=== PATIENT | male | born 1955 | race Caucasian/White ===

== ENCOUNTER 2018-01-27 13:28 | Inpatient (IN) | payer MEDICAID, OTHER ==
[~2018-01-27] VITALS: Ht 180.3 cm; Wt 130.2 kg
[2018-01-27 14:06] LABS: BASOPHILS % (AUTO) 0 % (0-1); EOSINOPHILS # (AUTO) 0.06 x10^3/uL (0-0.4); EOSINOPHILS % (AUTO) 1 % (1-7); LYMPHOCYTES # (AUTO) 0.99 x10^3/uL (1-3.4); LYMPHOCYTES % (AUTO) 12 % (22-44); MD NO; MEAN CORPUSCULAR HGB CONC 33.2 g/dL (33.2-36.2); MEAN CORPUSCULAR VOLUME 96.3 fL (81-97); MEAN PLATELET VOLUME 9.8 fL (7.4-10.4); MONOCYTES # (AUTO) 0.42 x10^3/uL (0.2-0.8); MONOCYTES % (AUTO) 5 % (2-9); NEUTROPHILS % (AUTO) 82 % (42-75); PLATELET COUNT 155 x10^3/uL (130-400); RED BLOOD COUNT 5.37 x10^6/uL (4.38-5.82); RED CELL DISTRIBUTION WIDTH 14.1 % (9.4-14.8)
[2018-01-27 14:17] LABS: INTERNATIONAL NORMALIZED RATIO 1.1 (0.93-1.1); PROTHROMBIN TIME 11.4 Seconds (9.6-11.5)
[2018-01-27 14:19] LABS: ALANINE AMINOTRANSFERASE 32 U/L (12-78); ALBUMIN 3.6 g/dL (3.4-5.0); ANION GAP 8 mmol/L (5-15); CALCIUM 8.8 mg/dL (8.5-10.1); CHLORIDE 114 mmol/L (98-107); CREATININE 1.75 mg/dL (0.7-1.3)
[2018-01-27 14:24] LABS: ALKALINE PHOSPHATASE 109 U/L (45-117); BILIRUBIN,TOTAL 0.8 mg/dL (0.2-1.0); TOTAL PROTEIN 7.5 g/dL (6.4-8.2); TROPONIN I < 0.015 ng/mL (0.000-0.045)
[2018-01-27] MEDS ORDERED: ALLO300T PO (15:06)
[2018-01-27] MEDS ORDERED: DABI150C PO (15:06)
[2018-01-27] MEDS ORDERED: FURO-92 PO (15:06)
[2018-01-27] MEDS ORDERED: CARV-39 PO (15:06)
[2018-01-27] MEDS ORDERED: LOSA50TA6 PO (15:06)
[2018-01-27] MEDS ORDERED: POLYETHYLENE GLYCOL 17 GM PACKET PO PRN (16:00)
[2018-01-27] MEDS ORDERED: hydrALAzine 20 MG/ML, 1ML IVPush PRN (16:00)
[2018-01-27] MEDS ORDERED: NITROGLYCERIN 0.4 MG BOTTLE (25 TABS) SL PRN (16:00)
[2018-01-27 16:13] VITALS: BP 120/81
[2018-01-27 16:31] VITALS: BP 120/81
[2018-01-27] MEDS: SODIUM CHLORIDE 0.9% 1,000 ML IV SCH (18:26)
[2018-01-27 19:02] VITALS: BP 119/77
[2018-01-27] MEDS: LOSARTAN 50MG TABLET PO SCH (20:49)
[2018-01-27] MEDS: DABIGATRAN 150 MG CAPSULE PO SCH (20:49)
[2018-01-27] MEDS ORDERED: CARVEDILOL 25 MG TABLET PO SCH (21:00)
[2018-01-27] MEDS ORDERED: CARVEDILOL 25 MG TABLET PO ONE (21:00)
[2018-01-27 23:01] LABS: TROPONIN I < 0.015 ng/mL (0.000-0.045)
[2018-01-28 01:11] VITALS: BP 115/75
[2018-01-28] MEDS: SODIUM CHLORIDE 0.9% 1,000 ML IV SCH (05:20)
[2018-01-28 05:22] LABS: ANION GAP 5 mmol/L (5-15); CALCIUM 8.1 mg/dL (8.5-10.1); CHLORIDE 112 mmol/L (98-107); CREATININE 1.35 mg/dL (0.7-1.3)
[2018-01-28 05:28] LABS: TROPONIN I < 0.015 ng/mL (0.000-0.045)
[2018-01-28 07:12] VITALS: BP 115/75
[2018-01-28] MEDS ORDERED: FUROSEMIDE 20 MG TABLET PO SCH (09:00)
[2018-01-28] MEDS ORDERED: ALLOPURINOL 300 MG TABLET PO SCH (09:00)
[2018-01-28] MEDS: LOSARTAN 50MG TABLET PO SCH (09:42)
[2018-01-28] MEDS: DABIGATRAN 150 MG CAPSULE PO SCH (09:42)
[2018-01-28 12:27] VITALS: BP 120/75
[2018-01-28] MEDS ORDERED: CARVEDILOL 25 MG TABLET PO SCH (21:00)
== END 2018-01-28 17:06 | disposition home or self-care (01) | DRG 313 ==
LOC: ED 15:05 → EDIP 15:06 → ED 15:53 → 5SO 15:56
PROVIDERS: ADMIT Family Medicine; ATTEND Family Medicine
DX: R07.89 Other chest pain (principal); N17.9 Acute kidney failure, unspecified; F41.1 Generalized anxiety disorder; E86.0 Dehydration; I11.0 Hypertensive heart disease with heart failure; I20.9 Angina pectoris, unspecified; I50.9 Heart failure, unspecified; K21.9 Gastro-esophageal reflux disease without esophagitis; M10.9 Gout, unspecified; M19.90 Unspecified osteoarthritis, unspecified site; Z60.9 Problem related to social environment, unspecified; Z73.3 Stress, not elsewhere classified; Z77.22 Contact with and (suspected) exposure to environmental tobacco smoke (acute) (chronic); Z79.02 Long term (current) use of antithrombotics/antiplatelets; Z79.01 Long term (current) use of anticoagulants; Z83.3 Family history of diabetes mellitus; Z86.711 Personal history of pulmonary embolism; Z86.718 Personal history of other venous thrombosis and embolism; Z88.0 Allergy status to penicillin
CPT/HCPCS: 36415; 71045; 80048; 80053; 84484; 85025; 85610; 93005; 93017; 93306; 99285; J7030

== ENCOUNTER 2018-05-08 20:27 | Observation (INO) | payer MEDICAID ==
[~2018-05-08] VITALS: Ht 180.3 cm; Wt 134.0 kg
[~2018-05-08 20:27] MED LIST: ALLO300T PO; CARV-39 PO; DABI150C PO; FURO-92 PO; LOSA50TA7 PO
[2018-05-08] MEDS ORDERED: CLINDAMYCIN PMX 600MG/50ML 50 ML IVPB ONE (21:00)
[2018-05-08] MEDS ORDERED: SODIUM CHLORIDE FLUSH 10ML SYR IVF ONE (21:00)
[2018-05-08] MEDS ORDERED: CLINDAMYCIN PMX 600MG/50ML 50 ML ONE (21:03)
[2018-05-08] MEDS ORDERED: IBUPROFEN 800 MG TABLET ONE (21:12)
[2018-05-08 21:18] LABS: BASOPHILS # (AUTO) 0.04 x10^3/uL (0-0.1); BASOPHILS % (AUTO) 1 % (0-1); EOSINOPHILS # (AUTO) 0.24 x10^3/uL (0-0.4); EOSINOPHILS % (AUTO) 3 % (1-7); LYMPHOCYTES % (AUTO) 20 % (22-44); MD NO; MEAN CORPUSCULAR HEMOGLOBIN 31.6 pg (27.5-34.5); MEAN CORPUSCULAR HGB CONC 33.6 g/dL (33.2-36.2); MEAN CORPUSCULAR VOLUME 94.1 fL (81-97); MEAN PLATELET VOLUME 9.5 fL (7.4-10.4); MONOCYTES # (AUTO) 0.69 x10^3/uL (0.2-0.8); MONOCYTES % (AUTO) 9 % (2-9); NEUTROPHILS # (AUTO) 5.02 x10^3/uL (1.8-6.8); NEUTROPHILS % (AUTO) 67 % (42-75); PLATELET COUNT 147 x10^3/uL (130-400); RED BLOOD COUNT 5.02 x10^6/uL (4.38-5.82); RED CELL DISTRIBUTION WIDTH 14.4 % (9.4-14.8)
[2018-05-08 21:28] LABS: ALBUMIN 3.2 g/dL (3.4-5.0); ANION GAP 6 mmol/L (5-15); CALCIUM 8.4 mg/dL (8.5-10.1); CHLORIDE 112 mmol/L (98-107)
[2018-05-08] MEDS ORDERED: IBUPROFEN 800 MG TABLET PO ONE (21:30)
[2018-05-08 21:34] LABS: ALANINE AMINOTRANSFERASE 22 U/L (12-78); ALKALINE PHOSPHATASE 95 U/L (45-117); BILIRUBIN,TOTAL 0.5 mg/dL (0.2-1.0); CREATININE 1.33 mg/dL (0.7-1.3)
[2018-05-08] MEDS ORDERED: SODIUM CHLORIDE FLUSH 10ML SYR IVF PRN (22:00)
[2018-05-08 22:38] VITALS: BP 133/88
[2018-05-08] MEDS ORDERED: hydrALAzine 20 MG/ML, 1ML IVPush PRN (23:00)
[2018-05-08] MEDS ORDERED: ACETAMINOPHEN 325 MG TABLET PO PRN (23:00)
[2018-05-08] MEDS: CARVEDILOL 25 MG TABLET PO SCH (23:20)
[2018-05-08] MEDS: LOSARTAN 50MG TABLET PO SCH (23:21)
[2018-05-08] MEDS: SODIUM CHLORIDE FLUSH 10ML SYR IVF SCH (23:21)
[2018-05-08] MEDS: DABIGATRAN 150 MG CAPSULE PO SCH (23:47)
[2018-05-09 01:54] VITALS: BP 126/82
[2018-05-09 04:41] LABS: BASOPHILS # (AUTO) 0.04 x10^3/uL (0-0.1); BASOPHILS % (AUTO) 1 % (0-1); EOSINOPHILS # (AUTO) 0.18 x10^3/uL (0-0.4); EOSINOPHILS % (AUTO) 3 % (1-7); LYMPHOCYTES # (AUTO) 1.02 x10^3/uL (1-3.4); LYMPHOCYTES % (AUTO) 18 % (22-44); MD NO; MEAN CORPUSCULAR HEMOGLOBIN 31.3 pg (27.5-34.5); MEAN CORPUSCULAR HGB CONC 33.3 g/dL (33.2-36.2); MEAN PLATELET VOLUME 9.3 fL (7.4-10.4); MONOCYTES # (AUTO) 0.66 x10^3/uL (0.2-0.8); MONOCYTES % (AUTO) 12 % (2-9); NEUTROPHILS # (AUTO) 3.84 x10^3/uL (1.8-6.8); NEUTROPHILS % (AUTO) 67 % (42-75); PLATELET COUNT 121 x10^3/uL (130-400); RED BLOOD COUNT 4.71 x10^6/uL (4.38-5.82); RED CELL DISTRIBUTION WIDTH 14.3 % (9.4-14.8)
[2018-05-09] MEDS: CLINDAMYCIN PMX 600MG/50ML 50 ML IV SCH ×3 (04:43→21:07)
[2018-05-09 04:49] LABS: ANION GAP 7 mmol/L (5-15); CHLORIDE 114 mmol/L (98-107); CREATININE 1.21 mg/dL (0.7-1.3)
[2018-05-09 04:56] LABS: HEMOGLOBIN A1C 5.6 % (4.2-6.3)
[2018-05-09 07:15] VITALS: BP 104/63
[2018-05-09] MEDS: CARVEDILOL 25 MG TABLET PO SCH ×2 (09:00→21:04)
[2018-05-09] MEDS: LOSARTAN 50MG TABLET PO SCH ×2 (09:00→21:03)
[2018-05-09] MEDS: SODIUM CHLORIDE FLUSH 10ML SYR IVF SCH ×2 (09:32→21:04)
[2018-05-09] MEDS: DABIGATRAN 150 MG CAPSULE PO SCH ×2 (09:33→21:04)
[2018-05-09] MEDS: FUROSEMIDE 40 MG TABLET PO SCH (09:33)
[2018-05-09 12:12] VITALS: BP 116/75
[2018-05-09 13:37] VITALS: BP 115/72
[2018-05-09 19:59] VITALS: BP 125/76
[2018-05-10 02:00] VITALS: BP 124/77
[2018-05-10 04:23] LABS: BASOPHILS # (AUTO) 0.05 x10^3/uL (0-0.1); BASOPHILS % (AUTO) 1 % (0-1); EOSINOPHILS # (AUTO) 0.25 x10^3/uL (0-0.4); EOSINOPHILS % (AUTO) 4 % (1-7); LYMPHOCYTES # (AUTO) 1.27 x10^3/uL (1-3.4); LYMPHOCYTES % (AUTO) 22 % (22-44); MD NO; MEAN CORPUSCULAR HEMOGLOBIN 31.5 pg (27.5-34.5); MEAN CORPUSCULAR HGB CONC 33.7 g/dL (33.2-36.2); MEAN CORPUSCULAR VOLUME 93.5 fL (81-97); MEAN PLATELET VOLUME 9.3 fL (7.4-10.4); MONOCYTES # (AUTO) 0.57 x10^3/uL (0.2-0.8); MONOCYTES % (AUTO) 10 % (2-9); NEUTROPHILS # (AUTO) 3.76 x10^3/uL (1.8-6.8); NEUTROPHILS % (AUTO) 64 % (42-75); PLATELET COUNT 124 x10^3/uL (130-400); RED BLOOD COUNT 4.75 x10^6/uL (4.38-5.82); RED CELL DISTRIBUTION WIDTH 14.2 % (9.4-14.8)
[2018-05-10 04:31] LABS: ANION GAP 9 mmol/L (5-15); CALCIUM 7.8 mg/dL (8.5-10.1); CHLORIDE 111 mmol/L (98-107); CREATININE 1.21 mg/dL (0.7-1.3)
[2018-05-10] MEDS: CLINDAMYCIN PMX 600MG/50ML 50 ML IV SCH ×2 (05:15→13:56)
[2018-05-10 07:36] VITALS: BP 119/78
[2018-05-10] MEDS: DABIGATRAN 150 MG CAPSULE PO SCH (08:04)
[2018-05-10] MEDS: FUROSEMIDE 40 MG TABLET PO SCH (08:05)
[2018-05-10] MEDS: LOSARTAN 50MG TABLET PO SCH (08:05)
[2018-05-10] MEDS: CARVEDILOL 25 MG TABLET PO SCH (08:05)
[2018-05-10] MEDS: SODIUM CHLORIDE FLUSH 10ML SYR IVF SCH (08:05)
[2018-05-10 14:40] VITALS: BP 122/77
[2018-05-10] MEDS ORDERED: CLIN300C8 PO (14:52)
[2018-05-10] MEDS ORDERED: CLINDAMYCIN 300 MG CAPSULE PO ONE (15:00)
== END 2018-05-10 16:15 | disposition home or self-care (01) ==
LOC: ED 21:40 → INTOOBSV 21:46 → EDIP 21:46 → ED 22:08 → 3NW 22:29
PROVIDERS: ADMIT Family Medicine; ATTEND Family Medicine
DX: L03.115 Cellulitis of right lower limb (principal); I13.0 Hypertensive heart and chronic kidney disease with heart failure and stage 1 through stage 4 chronic kidney disease, or unspecified chronic kidney disease; I50.32 Chronic diastolic (congestive) heart failure; E78.5 Hyperlipidemia, unspecified; N18.3 Chronic kidney disease, stage 3 (moderate); D89.9 Disorder involving the immune mechanism, unspecified; Z86.718 Personal history of other venous thrombosis and embolism; Z23 Encounter for immunization
CPT/HCPCS: 36415; 80048; 80053; 83036; 83605; 85025; 86480; 87040; 90471; 90656; 93971; 96365; 96366; 99285; G0378

== ENCOUNTER 2018-05-13 03:03 | Emergency (ER) | payer MEDICAID ==
[~2018-05-13] VITALS: Ht 180.3 cm; Wt 125.0 kg
[2018-05-13 03:03] VITALS: BP 135/88
[~2018-05-13 03:03] MED LIST changes: +CLIN300C8 PO
[2018-05-13] MEDS ORDERED: HYDROcodone/APAP 5/325 TABLET ONE (03:55)
[2018-05-13 03:56] LABS: BASOPHILS # (AUTO) 0.04 x10^3/uL (0-0.1); BASOPHILS % (AUTO) 1 % (0-1); EOSINOPHILS % (AUTO) 3 % (1-7); LYMPHOCYTES # (AUTO) 1.28 x10^3/uL (1-3.4); LYMPHOCYTES % (AUTO) 19 % (22-44); MD NO; MEAN CORPUSCULAR HEMOGLOBIN 31.2 pg (27.5-34.5); MEAN CORPUSCULAR HGB CONC 33.2 g/dL (33.2-36.2); MEAN CORPUSCULAR VOLUME 93.8 fL (81-97); MEAN PLATELET VOLUME 9.3 fL (7.4-10.4); MONOCYTES # (AUTO) 0.77 x10^3/uL (0.2-0.8); MONOCYTES % (AUTO) 11 % (2-9); NEUTROPHILS # (AUTO) 4.54 x10^3/uL (1.8-6.8); NEUTROPHILS % (AUTO) 66 % (42-75); PLATELET COUNT 149 x10^3/uL (130-400); RED BLOOD COUNT 5.02 x10^6/uL (4.38-5.82); RED CELL DISTRIBUTION WIDTH 14.1 % (9.4-14.8)
[2018-05-13] MEDS ORDERED: HYDROcodone/APAP 5/325 TABLET PO ONE (04:00)
[2018-05-13 04:03] LABS: HCT (SEDRATE) 47.1 % (39.2-51.8)
[2018-05-13] MEDS ORDERED: LIDOCAINE-MPF 1%, 5ML ONE (04:03)
[2018-05-13 04:04] LABS: ANION GAP 5 mmol/L (5-15); CALCIUM 8.1 mg/dL (8.5-10.1); CHLORIDE 110 mmol/L (98-107); CREATININE 1.36 mg/dL (0.7-1.3)
[2018-05-13] MEDS ORDERED: ONDANSETRON ODT 4 MG ONE (04:18)
[2018-05-13] MEDS ORDERED: ONDANSETRON ODT 4 MG PO ONE (04:30)
== END 2018-05-13 06:13 | disposition home or self-care (01) ==
LOC: ED 03:36
DX: M25.561 Pain in right knee (principal); I10 Essential (primary) hypertension; E78.5 Hyperlipidemia, unspecified; E66.9 Obesity, unspecified; Z68.38 Body mass index [BMI] 38.0-38.9, adult
CPT/HCPCS: 20610; 36415; 73564; 80048; 82040; 82945; 83615; 84157; 84550; 84560; 85025; 85651; 85810; 86141; 87070; 87205; 89050; 89060; 99285; Q0162

== ENCOUNTER 2018-06-13 09:17 | Emergency (ER) | payer MEDICAID ==
[~2018-06-13] VITALS: Ht 180.3 cm; Wt 128.8 kg
[2018-06-13] MEDS ORDERED: ONDANSETRON 2MG/ML, 2ML ONE (09:44)
[2018-06-13] MEDS ORDERED: ONDANSETRON 2MG/ML, 2ML IVPush ONE (10:00)
[2018-06-13] MEDS ORDERED: SODIUM CHLORIDE FLUSH 10ML SYR IVF ONE (10:00)
[2018-06-13] MEDS ORDERED: SODIUM CHLORIDE 0.9% 1,000ML IVBOLUS ONE (10:00)
[2018-06-13 10:03] LABS: BASOPHILS # (AUTO) 0.01 x10^3/uL (0-0.1); BASOPHILS % (AUTO) 0 % (0-1); EOSINOPHILS # (AUTO) 0.06 x10^3/uL (0-0.4); EOSINOPHILS % (AUTO) 1 % (1-7); LYMPHOCYTES # (AUTO) 0.43 x10^3/uL (1-3.4); LYMPHOCYTES % (AUTO) 4 % (22-44); MD NO; MEAN CORPUSCULAR HEMOGLOBIN 30.6 pg (27.5-34.5); MEAN CORPUSCULAR VOLUME 92.6 fL (81-97); MEAN PLATELET VOLUME 8.6 fL (7.4-10.4); MONOCYTES # (AUTO) 0.16 x10^3/uL (0.2-0.8); MONOCYTES % (AUTO) 2 % (2-9); NEUTROPHILS # (AUTO) 9.26 x10^3/uL (1.8-6.8); NEUTROPHILS % (AUTO) 93 % (42-75); PLATELET COUNT 256 x10^3/uL (130-400); RED CELL DISTRIBUTION WIDTH 13.6 % (9.4-14.8)
[2018-06-13 10:15] LABS: ALBUMIN 3.4 g/dL (3.4-5.0); ANION GAP 8 mmol/L (5-15); CALCIUM 8.9 mg/dL (8.5-10.1); CHLORIDE 114 mmol/L (98-107)
[2018-06-13 10:20] LABS: ALANINE AMINOTRANSFERASE 20 U/L (12-78); ALKALINE PHOSPHATASE 103 U/L (45-117); BILIRUBIN,TOTAL 0.8 mg/dL (0.2-1.0)
[2018-06-13 11:42] VITALS: BP 137/83
== END 2018-06-13 11:51 | disposition home or self-care (01) ==
LOC: ED 09:43
DX: R11.2 Nausea with vomiting, unspecified (principal); R10.84 Generalized abdominal pain; R19.7 Diarrhea, unspecified; R78.5 Finding of other psychotropic drug in blood; I10 Essential (primary) hypertension; Z86.718 Personal history of other venous thrombosis and embolism; E66.01 Morbid (severe) obesity due to excess calories; Z68.39 Body mass index [BMI] 39.0-39.9, adult
CPT/HCPCS: 36415; 80053; 83690; 85025; 96361; 96374; 99283; J2405; J7030

== ENCOUNTER 2019-06-13 01:26 | Inpatient (IN) | payer MEDICAID ==
[~2019-06-13] VITALS: Ht 180.3 cm; Wt 151.3 kg
[~2019-06-13 01:26] MED LIST changes: +LOSA50TA14 PO; -LOSA50TA7 PO
[2019-06-13] MEDS ORDERED: AMLO10TA8 PO (01:35)
[2019-06-13] MEDS ORDERED: ONDANSETRON 2MG/ML, 2ML ONE (01:53)
[2019-06-13] MEDS ORDERED: hydrALAzine 20 MG/ML, 1ML ONE (01:53)
[2019-06-13] MEDS ORDERED: MORPHINE SULFATE 4 MG/ML, 1ML ONE ×2 (01:53→03:59)
[2019-06-13] MEDS ORDERED: hydrALAzine 20 MG/ML, 1ML IV ONE (02:00)
[2019-06-13] MEDS ORDERED: SODIUM CHLORIDE FLUSH 10ML SYR IVF ONE (02:00)
[2019-06-13] MEDS ORDERED: ONDANSETRON 2MG/ML, 2ML IVPush ONE (02:00)
[2019-06-13] MEDS: MORPHINE SULFATE 4 MG/ML, 1ML IVPush PRN ×2 (02:11→04:02)
--- NOTE | 2019-06-13 02:12 | NUR ---
pt medicated per mar. de la vega at bedside.
[2019-06-13 02:17] LABS: BASOPHILS # (AUTO) 0.07 x10^3/uL (0-0.1); BASOPHILS % (AUTO) 1 % (0-1); EOSINOPHILS # (AUTO) 0.39 x10^3/uL (0-0.4); EOSINOPHILS % (AUTO) 6 % (1-7); LYMPHOCYTES # (AUTO) 1.63 x10^3/uL (1-3.4); LYMPHOCYTES % (AUTO) 27 % (22-44); MD NO; MEAN CORPUSCULAR HEMOGLOBIN 30.1 pg (27.5-34.5); MEAN CORPUSCULAR HGB CONC 32.7 g/dL (33.2-36.2); MEAN CORPUSCULAR VOLUME 91.8 fL (81-97); MEAN PLATELET VOLUME 9.2 fL (7.4-10.4); MONOCYTES # (AUTO) 0.48 x10^3/uL (0.2-0.8); MONOCYTES % (AUTO) 8 % (2-9); NEUTROPHILS # (AUTO) 3.54 x10^3/uL (1.8-6.8); NEUTROPHILS % (AUTO) 58 % (42-75); PLATELET COUNT 143 x10^3/uL (130-400); RED BLOOD COUNT 5.48 x10^6/uL (4.38-5.82); RED CELL DISTRIBUTION WIDTH 14.3 % (9.4-14.8)
[2019-06-13 02:30] LABS: ALANINE AMINOTRANSFERASE 19 U/L (12-78); ALBUMIN 3.2 g/dL (3.4-5.0); ANION GAP 6 mmol/L (5-15); CALCIUM 8.4 mg/dL (8.5-10.1); CHLORIDE 112 mmol/L (98-107); CREATININE 1.23 mg/dL (0.7-1.3)
[2019-06-13] MEDS ORDERED: ASPIRIN 81 MG TABLET CHEW PO ONE (02:30)
[2019-06-13] MEDS ORDERED: ASPIRIN 81 MG TABLET CHEW ONE (02:32)
[2019-06-13 02:33] LABS: ALKALINE PHOSPHATASE 109 U/L (45-117); BILIRUBIN,TOTAL 0.5 mg/dL (0.2-1.0); TOTAL PROTEIN 7.5 g/dL (6.4-8.2); TROPONIN I < 0.015 ng/mL (0.000-0.045)
--- NOTE | 2019-06-13 02:46 | NUR ---
PT TO CTA NOW
--- NOTE | 2019-06-13 02:57 | NUR ---
Break RN: patient back from CT scan. awaiting result.
[2019-06-13] MEDS ORDERED: OMNIPAQUE 350 MG/ML, 100ML BOTTLE ONE (03:00)
[2019-06-13] MEDS ORDERED: HEPARIN 5,000 UNITS/ML, 1ML ONE (03:50)
[2019-06-13] MEDS ORDERED: HEPARIN 25,000 UNITS/500ML PMX 500 ML ONE (03:50)
[2019-06-13] MEDS ORDERED: HEPARIN 5,000 UNITS/ML, 1ML IV ONE (04:00)
[2019-06-13] MEDS ORDERED: HEPARIN 5,000 UNITS/ML, 1ML IV PRN ×2 (04:00→06:00)
[2019-06-13] MEDS ORDERED: HEPARIN 25,000 UNITS/500ML PMX 500 ML IV PRN ×2 (04:00→06:00)
[2019-06-13] MEDS ORDERED: HYDROcodone/APAP 5/325 TABLET PO PRN (05:00)
[2019-06-13] MEDS ORDERED: ONDANSETRON 2MG/ML, 2ML IVPush PRN (05:00)
[2019-06-13 06:30] VITALS: BP 161/101
[2019-06-13 07:33] VITALS: BP 139/92
[2019-06-13] MEDS: ACETAMINOPHEN 325 MG TABLET PO PRN ×2 (09:17→22:06)
[2019-06-13 10:36] LABS: TROPONIN I < 0.015 ng/mL (0.000-0.045)
[2019-06-13] MEDS ORDERED: PHARMACY INSTRUCTION MC PRN (13:00)
[2019-06-13] MEDS: ENOXAPARIN 150 MG/ML SQ SCH (13:12)
[2019-06-13 15:20] VITALS: BP 143/95
[2019-06-13 19:02] VITALS: BP 146/89
[2019-06-14] MEDS: ENOXAPARIN 150 MG/ML SQ SCH ×2 (00:36→12:45)
[2019-06-14 01:35] VITALS: BP 126/74
[2019-06-14 05:07] LABS: BASOPHILS # (AUTO) 0.07 x10^3/uL (0-0.1); BASOPHILS % (AUTO) 1 % (0-1); EOSINOPHILS # (AUTO) 0.35 x10^3/uL (0-0.4); EOSINOPHILS % (AUTO) 6 % (1-7); LYMPHOCYTES # (AUTO) 1.79 x10^3/uL (1-3.4); LYMPHOCYTES % (AUTO) 33 % (22-44); MD NO; MEAN CORPUSCULAR HEMOGLOBIN 30.6 pg (27.5-34.5); MEAN CORPUSCULAR HGB CONC 33.3 g/dL (33.2-36.2); MEAN PLATELET VOLUME 8.9 fL (7.4-10.4); MONOCYTES # (AUTO) 0.39 x10^3/uL (0.2-0.8); MONOCYTES % (AUTO) 7 % (2-9); NEUTROPHILS # (AUTO) 2.87 x10^3/uL (1.8-6.8); NEUTROPHILS % (AUTO) 53 % (42-75); PLATELET COUNT 129 x10^3/uL (130-400); RED BLOOD COUNT 5.46 x10^6/uL (4.38-5.82); RED CELL DISTRIBUTION WIDTH 14.4 % (9.4-14.8)
[2019-06-14 05:20] LABS: ANION GAP 3 mmol/L (5-15); CALCIUM 8.4 mg/dL (8.5-10.1); CHLORIDE 112 mmol/L (98-107)
[2019-06-14 05:21] LABS: CREATININE 1.14 mg/dL (0.7-1.3)
[2019-06-14 06:49] VITALS: BP 138/83
[2019-06-14 12:17] VITALS: BP 151/100
[2019-06-14 19:21] VITALS: BP 160/97
[2019-06-14] MEDS: CARVEDILOL 6.25 MG TABLET PO SCH (20:44)
[2019-06-15 00:46] VITALS: BP 165/100
[2019-06-15] MEDS: ENOXAPARIN 150 MG/ML SQ SCH (00:48)
[2019-06-15] MEDS ORDERED: AMLODIPINE 5 MG TABLET PO SCH (09:00)
[2019-06-15 09:32] VITALS: BP 166/100
[2019-06-15] MEDS: CARVEDILOL 6.25 MG TABLET PO SCH (09:34)
[2019-06-15 10:34] VITALS: BP 147/89
== END 2019-06-15 11:21 | disposition home or self-care (01) | DRG 176 ==
LOC: ED 03:16 → EDIP 03:43 → 5SO 05:38 → 4WST 06-15 00:23 → DCLOUNGE 06-15 11:13
PROVIDERS: ADMIT Internal Medicine; ATTEND Family Medicine
DX: I26.99 Other pulmonary embolism without acute cor pulmonale (principal); I82.413 Acute embolism and thrombosis of femoral vein, bilateral; Z68.42 Body mass index [BMI] 45.0-49.9, adult; I82.433 Acute embolism and thrombosis of popliteal vein, bilateral; E78.5 Hyperlipidemia, unspecified; N18.9 Chronic kidney disease, unspecified; M10.9 Gout, unspecified; K80.20 Calculus of gallbladder without cholecystitis without obstruction; E66.9 Obesity, unspecified; I12.9 Hypertensive chronic kidney disease with stage 1 through stage 4 chronic kidney disease, or unspecified chronic kidney disease; I77.819 Aortic ectasia, unspecified site; Z91.14 Patient's other noncompliance with medication regimen; Z86.718 Personal history of other venous thrombosis and embolism; Z86.711 Personal history of pulmonary embolism
CPT/HCPCS: 36415; 70450; 71045; 71275; 80048; 80053; 84484; 85025; 85520; 93005; 93306; 93970; 96374; 96375; 99285; G0378; J1644; J1650; J2405; Q9967; J0360; J2270